=== PATIENT | male | born 1980 | race Two or more races ===

== ENCOUNTER 2019-01-08 11:55 | Emergency (ER) | payer SELFPAY ==
[~2019-01-08] VITALS: Ht 188 cm; Wt 88.5 kg
--- NOTE | 2019-01-08 12:00 | NUR ---
ED Nurse Note: Patient brought in by RA 26 from [place] patient himself called [facility] because of "combination problems" patient is talkatative and anxious. patient is alert awake ambulatory, breathing unlabored and even. vitals stable in bed
[2019-01-08] MEDS ORDERED: MIRTAZAPINE15 MG ORAL (12:01)
--- NOTE | 2019-01-08 12:21 | Emergency Room Report ---
History of Present Illness General Chief Complaint: General Complaint Present Illness HPI 38-year-old male presents to the emergency department complaining of increased anxiety after smoking meth for 3 days straight. Patient states that he has not slept loss 3 days. Patient is very adamant about needing to speak with PD about some "situation" with "Intal that he needs to give to them ". Patient states he is not currently having any medical emergency he states he has been noticing some changes in his breathing the past few days but he is unable to describe exactly what changes he is feeling. Patient denies wheeze, cough, fevers, chills, dyspnea or shortness of breath.Denies CP, Palpitations, LOC, AMS , dizziness, Changes in Vision, Sensation, paresthesias, or a sudden severe headache. He denies IV drug user reports that he only smokes his mouth. He denies pain, open wounds,or bleeding. Allergies: Coded Allergies: No Known Allergies (Unverified , 01/08/19) Patient History Past Medical History: see triage record Past Surgical History: none Pertinent Family History: none Social History: Reports: alcohol use, drug use - meth Reviewed Nursing Documentation: PMH: Agreed; PSxH: Agreed Review of Systems All Other Systems: negative except mentioned in HPI Physical Exam Vital Signs Date Time Temp Pulse Resp B/P (MAP) Pulse Ox O2 Delivery O2 Flow Rate FiO2 01/08/19 11:51 97.9 110 18 99 Room Air Sp02 EP Interpretation: reviewed, normal General Appearance: no apparent distress, alert, GCS 15, non-toxic Head: normocephalic, atraumatic Eyes: bilateral eye normal inspection, bilateral eye PERRL ENT: hearing grossly normal, normal voice Neck: full range of motion Respiratory: chest non-tender, lungs clear, normal breath sounds, speaking full sentences Cardiovascular #1: regular rate, rhythm, no edema, tachycardia Gastrointestinal: normal bowel sounds, non tender, soft Rectal: deferred Genitourinary: normal inspection Musculoskeletal: back normal, gait/station normal, normal range of motion, non- tender Neurologic: alert, oriented x3, responsive, motor strength/tone normal, sensory intact, speech normal, grossly normal Psychiatric: judgement/insight normal Skin: normal color, no rash, warm/dry, well hydrated Lymphatic: no adenopathy Medical Decision Making PA Attestation Dr. Fuentes is my supervising Physician whom patient management has been discussed with. Homeless Attestation I, The treating provider, Natividad BANEGAS, has assessed and agrees that patient is medically stable for discharge to an outpatient disposition. Diagnostic Impression: Primary Impression: Methamphetamine abuse Additional Impression: Acute anxiety ER Course 38-year-old male presents to the emergency department complaining of increased anxiety after smoking meth for 3 days straight. Patient states that he has not slept loss 3 days. Patient is very adamant about needing to speak with PD about some "situation" with "Intal that he needs to give to them ". Patient states he is not currently having any medical emergency he states he has been noticing some changes in his breathing the past few days but he is unable to describe exactly what changes he is feeling. Patient denies wheeze, cough, fevers, chills, dyspnea or shortness of breath.Denies CP, Palpitations, LOC, AMS , dizziness, Changes in Vision, Sensation, paresthesias, or a sudden severe headache. He denies IV drug user reports that he only smokes his mouth. He denies pain, open wounds,or bleeding. Ddx considered but are not limited to AMS, ETOH, infection, Trauma/Fall, CVA, ND , Psych, homelessness Vital signs: other than mild tachycardia VS are WNL, pt. is afebrile. H&PE are most consistent with anxiousness and paranoia secondary to methamphetamine abuse. normal medical screening exam. no acute injury or disease noted at this time. pt. is NAD, NON-toxic, able to answer questions appropriately, pt. is oriented, and no signs of trauma or focal neurological deficits. ORDERS: none required at this time, the diagnosis is clinical ED INTERVENTIONS: -Ativan 1mg IM - Pt. has calmed down and is more rational. I d/w him to d/c drug use. Pt. is stable for close outpatient follow up. DISCHARGE: At this time pt. is stable for d/c to home. Will provide printed patient care instructions, and any necessary prescriptions. Care plan and follow up instructions have been discussed with the patient prior to discharge. Last Vital Signs Date Time Temp Pulse Resp B/P (MAP) Pulse Ox O2 Delivery O2 Flow Rate FiO2 01/08/19 11:51 97.9 110 18 99 Room Air Status: improved Disposition: HOME, SELF-CARE Condition: Stable Patient Instructions: Paranoia Additional Instructions: Take any previously prescribed medications as directed. STOP SMOKING METH ! Follow up with a Primary Care Provider in 3-5 days, even if your symptoms have resolved. Return sooner to ED if new symptoms occur, or current symptoms become worse. - Please note that this Emergency Department Report was dictated using [employer] system tester technology software, occasionally this can lead to erroneous entry secondary to interpretation by the dictation equipment. Natividad Ridley January 08, 2019 12:21
[2019-01-08] MEDS ORDERED: LORazepam Inj 2mg/ml 1ml ONE (12:29)
[2019-01-08] MEDS ORDERED: LORazepam Inj 2mg/ml 1ml IM ONE (12:30)
[2019-01-08 12:52] VITALS: BP 148/82
[2019-01-08 13:40] VITALS: BP 131/72
--- NOTE | 2019-01-08 13:40 | NUR ---
ED DISCHARGE NOTE: Patient is being discharged from medical care. Awake, alert and oriented x3. After care instructions, including referral to community resources were given but patient refused to take. patient refused to state where he will be going to. patient appears to be clean, neat and clothing is adequate to the weather. Patient verbalized understanding of After care instructions; at this time patient does not request medications, equipment or placement. ER MAKENZIE BURNS did not prescribe any medication for him at this time. ID band were removed. Patient ambulated out with all personal belongings with steady gait.
--- NOTE | 2019-01-08 15:18 | NUR ---
Note undantonieta in EDM - 01/08/19 at 1521 by GER Homeless Discharge: Patient is being discharged from medical care. Awake, alert and oriented x3. After care instructions, including referral to community resources were given but patient refused to take. patient refused to state where he will be going to. patient appears to be clean, neat and clothing is adequate to the weather. Patient verbalized understanding of After care instructions; at this time patient does not request medications, equipment or placement. ER MAKENZIE BURNS did not prescribe any medication for him at this time. ID band were removed. Patient ambulated out with all personal belongings with steady gait.
== END 2019-01-08 13:40 | disposition home or self-care (01) ==
LOC: EDBD 11:55 → EMR 13:20
DX: F15.10 Other stimulant abuse, uncomplicated (principal); F41.9 Anxiety disorder, unspecified; R00.0 Tachycardia, unspecified
CPT/HCPCS: 96372; 99283